=== PATIENT | male | born 1970 | race Caucasian/White ===

== ENCOUNTER 2020-03-26 10:06 | Outpatient (CLI) | payer OTHER, SELFPAY ==
[2020-03-27 14:53] LABS: SARS-CoV-2 RNA PCR Positive
== END 2020-03-26 10:07 | disposition home or self-care (01) ==
LOC: CHSLAB 10:11
PROVIDERS: PCP Internal Medicine; Visit Provider Internal Medicine
DX: U07.1 COVID-19 (principal); R50.9 Fever, unspecified; R05 Cough
CPT/HCPCS: 87635; C9803; U0003

== ENCOUNTER 2022-04-25 16:46 | Emergency (ER) | payer OTHER, SELFPAY ==
[2022-04-25 18:26] VITALS: BP 133/88; PULSE 85; RESP 17; TEMP 37.8; O2SAT 96
[2022-04-25 18:33] VITALS: O2SAT 95
--- NOTE | 2022-04-25 18:56 | ED.GENADULT ---
HPI - General Adult General Chief complaint: Upper Respiratory Infection Stated complaint: fever,chills,cough History of Present Illness HPI narrative: patient is an otherwise healthy year old male who has had flu-like symptoms for the last 48 hours, consisting of a fever as high as 104? today, treated with Tylenol and ibuprofen at home. He does feel generalized weakness and fatigue. Does have sinus congestion, sinus drainage, rhinorrhea, chills, diaphoresis, but no significant sore throat or dyspnea. The cough is nonproductive and dry. No abdominal pain. No nausea or vomiting. No urinary symptoms. He is a nonsmoker. He is vaccinated against COVID-19 2 of 2 doses +1 booster. He did contract COVID 19 in March 2020. Related Data Home Medications Medication Instructions Recorded Confirmed No Home Medications 04/25/22 04/25/22 Allergies Allergy/AdvReac Type Severity Reaction Status Date / Time No Known Allergies Allergy Verified 04/25/22 18:37 Review of Systems Review of Systems: All systems reviewed & are unremarkable except as noted in HPI and below Constitutional: Constitutional: Reports no additional constitutional complaints, Denies anorexia, Reports body ache(s), Reports chills, Denies excessive sweating, Reports fatigue, Reports fever(s), Denies frequent falls, Denies headache(s), Reports malaise and Denies poor appetite Eyes: Eyes: Reports no additional eye complaints, Denies blurry vision, Denies change in vision, Denies irritation, Denies itchy eyes and Denies photophobia ENT: Reports system reviewed and no additional complaints, except as documented, Reports Normal hearing present, Denies change in voice, Denies dysphagia, Denies vertigo, Denies dizziness, Denies ear discharge, Denies headache(s), Denies hearing loss, Denies hoarseness, Reports nasal congestion, Reports nasal discharge, Denies neck pain, Denies sinus pressure, Denies sore throat and Denies throat swelling Cardiovascular: Cardiovascular: Reports no additional cardiovascular complaints, Denies chest pain, Denies syncope, Denies rapid heart rate, Denies irregular heart rhythm, Denies leg edema, Denies dyspnea and Denies slow heart rate Respiratory: Respiratory: Reports no additional respiratory complaints, Reports cough, Denies dyspnea, Denies stridor and Denies wheezing Gastrointestinal: Gastrointestinal: Reports no additional gastrointestinal complaints, Denies abdominal pain, Denies melena, Denies hematochezia, Denies dysphagia, Denies diarrhea, Denies nausea and Denies vomiting Genitourinary: Genitourinary: Denies hematuria, Denies oliguria, Denies dysuria, Denies flank pain, Denies urinary frequency and Denies urinary urgency Musculoskeletal: Musculoskeletal: Reports no additional musculoskeletal complaints, Denies abnormal gait, Denies back pain, Denies myalgias, Denies arthralgias, Denies joint swelling, Denies limited range of motion, Denies muscle cramps, Denies muscle weakness, Denies neck pain and Denies numbness Integumentary/Breasts: Skin/Breast: Reports system reviewed and no additional complaints, except as docu, Denies breast pain, Denies change in pigmentation, Denies pruritus, Denies erythema and Denies wounds Neurologic: Reports system reviewed and no additional complaints, except as documented, Reports Normal hearing present, Denies Abnormal speech present, Denies abnormal gait, Denies confusion, Denies vertigo, Denies dizziness, Denies syncope, Denies frequent falls, Denies headache(s), Denies focal weakness, Denies numbness and Denies paresthesias Psychiatric: Psychiatric: Reports no additional psychiatric complaints and Denies confusion Endocrine: Endocrine: Reports no additional endocrine complaints, Denies cold intolerance, Denies excessive sweating, Denies fatigue and Denies heat intolerance Hematologic/Lymphatic: Hematologic/Lymphatic: Reports no additional hematologic/lymphatic complaints, Denies easy bleeding and Denies eas
[2022-04-25 19:42] LABS: Influenza A QL RT-PCR Positive (Negative); Influenza B QL RT-PCR Negative (Negative); SARS-CoV-2 RNA PCR Negative (Negative)
--- NOTE | 2022-04-25 19:44 | PC.NURSE ---
pt is sitting on stretcher in exam room nad noted. cough and sinus drainage noted. pt reports scratchy throat, denies pain, declines strep swab. pt is awaiting lab results at this time. will continue to monitor.
[2022-04-25 19:51] LABS: RSV RNA, RT-PCR Negative (Negative)
[2022-04-25] MEDS: OSELTAMIVIR PHOSPHATE 75 MG CAPSULE PO (20:03)
[2022-04-25 20:21] VITALS: BP 124/76; PULSE 80; RESP 14; TEMP 37.8; O2SAT 98
== END 2022-04-25 20:15 | disposition home or self-care (01) ==
PROVIDERS: Emergency Provider Emergency Medicine; PCP Internal Medicine
DX: J10.1 Influenza due to other identified influenza virus with other respiratory manifestations (principal); Z20.822 Contact with and (suspected) exposure to COVID-19
CPT/HCPCS: 87637; 99283; A9270

== ENCOUNTER 2023-04-19 07:56 | Emergency (ER) | payer OTHER, SELFPAY ==
--- NOTE | ~2023-04-19 | XR_ITS ---
EXAMINATION: XR chest 1V portable DATE: 04/19/2023 08:15 INDICATION: Midsternal chest pain with cough TECHNIQUE: frontal view of the chest was obtained. COMPARISON: Chest radiograph dated 05/20/2016 FINDINGS: The lungs remain clear with no focal airspace opacities, pulmonary edema, pleural effusion or pneumot horax. The cardiomediastinal silhouette is normal. Visualized bones and soft tissues are unremarkable . IMPRESSION: 1. No acute cardiopulmonary disease. Reviewed, dictated and finalized at location A. [facility]
[2023-04-19 07:56] VITALS: BP 131/100; PULSE 100; RESP 20; TEMP 37.3; O2SAT 97
--- NOTE | 2023-04-19 08:08 | ED.GENADULT ---
HPI - General Adult General Chief complaint: Upper Respiratory Infection Stated complaint: cough & sore throat Time Seen by Provider: 04/19/23 08:02 History of Present Illness HPI narrative: Carlos is a 52M that was previously healthy that presented to the ED with sinus pain, pressure, sore throat, fevers and chills for a few days that are not getting better. There is no CP, dyspnea, N/V, or diarrhea. Related Data Allergies Allergy/AdvReac Type Severity Reaction Status Date / Time No Known Allergies Allergy Verified 04/19/23 08:02 Review of Systems Review of Systems: All systems reviewed & are unremarkable except as noted in HPI and below Exam Const: General: cooperative, healthy appearing, comfortable, no acute distress, well developed, alert, awake and Physically active Orientation/consciousness: oriented to person, oriented to place and oriented to time HENMT: Head: normal to inspection, normocephalic and atraumatic Ears: hearing grossly normal bilaterally and external ears normal Face/Nose/Sinus: Normal external nose present Eyes: General: appearance normal, both eyes and all related structures Periorbital: periorbital findings normal Sclera: sclerae normal Pupils: Equal, round and reactive pupils present Neck: Neck: normal visual inspection Chest: Chest palpation & inspection: normal inspection of the chest Resp: Effort & Inspection: normal respiratory effort, able to speak in complete sentences and no respiratory distress Auscultation: clear to auscultation bilaterally Cardio: Jugular venous distension: no JVD Rate: regular rate Rhythm: regular rhythm GI: Inspection: normal to inspection GI Palp: Yes Soft to palpation Auscultation: normal bowel sounds Skin: General skin exam: normal color and no rashes or lesions noted Neuro: General: oriented to person, oriented to place and oriented to time Cranial nerves: Yes Equal, round and reactive pupils present Extrem: General: normal to inspection Course Course Emergency Course: Ordered labs, viral testing, and CXR labs and CXR are unremarkable. + for COVID Vital Signs Vital signs: Vital Signs Temperature 99.1 F 04/19/23 07:56 Pulse Rate 100 04/19/23 07:56 Respiratory Rate 20 04/19/23 07:56 Blood Pressure 131/100 H 04/19/23 07:56 Pulse Oximetry 97 04/19/23 07:56 Oxygen Delivery Room Air 04/19/23 07:56 Temperature 99.1 F 04/19/23 07:56 Pulse Rate 100 04/19/23 07:56 Respiratory Rate 20 04/19/23 07:56 Blood Pressure 131/100 H 04/19/23 07:56 Pulse Oximetry 97 04/19/23 08:10 Oxygen Delivery Room Air 04/19/23 08:10 Medical Decision Making Vital Signs Vital Signs: Vital Signs Temperature 99.1 F 04/19/23 07:56 Pulse Rate 100 04/19/23 07:56 Respiratory Rate 20 04/19/23 07:56 Blood Pressure 131/100 H 04/19/23 07:56 Pulse Oximetry 97 04/19/23 07:56 Oxygen Delivery Room Air 04/19/23 07:56 Temperature 99.1 F 04/19/23 07:56 Pulse Rate 100 04/19/23 07:56 Respiratory Rate 20 04/19/23 07:56 Blood Pressure 131/100 H 04/19/23 07:56 Pulse Oximetry 97 04/19/23 08:10 Oxygen Delivery Room Air 04/19/23 08:10 Lab Data 04/19/23 08:26 04/19/23 08:26 Labs: Lab Results 04/19/23 Range/Units 08:26 WBC 6.5 (4.8-10.8) K/mm3 RBC 5.34 (4.70-6.10) M/mm3 Hgb 14.9 (14.0-18.0) g/dL Hct 45.7 (40.0-54.0) % MCV 85.6 (78.0-102.0) fL MCH 27.9 (27.0-31.0) pg MCHC 32.6 (32.0-36.0) g/dL RDW 12.5 (11.6-14.4) % Plt Count 261 (150-420) K/mm3 MPV 8.7 (8.7-11.0) fl Immature Gran % (Auto) 0.5 H (0.0-0.0) % Neut % (Auto) 61.9 (50.0-70.0) % Lymph % (Auto) 24.3 (18.0-42.0) % Leslie % (Auto) 8.3 (2.0-11.0) % Eos % (Auto) 4.7 (1.0-6.0) % Baso % (Auto) 0.3 (0.0-1.0) % Lymph # (Auto) 1.59 (1.10-4.50) K/mm3 Leslie # (Auto) 0.54 (0.10-0.90) K/mm3 Eos # (Auto) 0.31 (0.02-0.50) K/mm3 Baso # (Auto) 0.02 (
[2023-04-19 08:10] VITALS: O2SAT 97
[2023-04-19 08:33] LABS: Basophils Absolute Auto 0.02 K/mm3 (0.00-0.10); Basophils Percent Auto 0.3 % (0.0-1.0); Eosinophils Absolute Auto 0.31 K/mm3 (0.02-0.50); Eosinophils Percent Auto 4.7 % (1.0-6.0); Hematocrit 45.7 % (40.0-54.0); Hemoglobin 14.9 g/dL (14.0-18.0); Immature Granulocyte Absolute 0.03 K/mm3 (0.00-0.00); Immature Granulocyte Percent A 0.5 % (0.0-0.0); Lymphocytes Absolute Auto 1.59 K/mm3 (1.10-4.50); Lymphocytes Percent Auto 24.3 % (18.0-42.0); Mean Corpuscular HGB Conc 32.6 g/dL (32.0-36.0); Mean Corpuscular Hemoglobin 27.9 pg (27.0-31.0); Mean Corpuscular Volume 85.6 fL (78.0-102.0); Mean Platelet Volume 8.7 fl (8.7-11.0); Monocytes Absolute Auto 0.54 K/mm3 (0.10-0.90); Monocytes Percent Auto 8.3 % (2.0-11.0); Neutrophils Percent Auto 61.9 % (50.0-70.0); Platelet Count Result 261 K/mm3 (150-420); Red Blood Count 5.34 M/mm3 (4.70-6.10); Red Cell Distribution Width 12.5 % (11.6-14.4); White Blood Count 6.5 K/mm3 (4.8-10.8)
[2023-04-19 08:47] LABS: Alanine Aminotransferase 70 U/L (16-63); Albumin Level 3.6 g/dL (3.4-5.0); Alkaline Phosphatase 54 U/L (46-116); Anion Gap 5 mmol/L (8-16); Aspartate Amino Transferase 22 U/L (15-37); Bilirubin,Total 0.5 mg/dL (0.00-1.00); Blood Urea Nitrogen 13 mg/dL (7-18); Calcium 9.2 mg/dL (8.5-10.1); Carbon Dioxide 33 mmol/L (21-32); Chloride 104 mmol/L (98-108); Estimated CRCL calculation 84 ml/min; Estimated Glomerular Filt Rate > 60; Glucose 135 mg/dL (70-99); Osmolality Calculated 296 mOsm/kg (285-295); Potassium 3.8 mmol/L (3.5-5.1); Sodium 142 mmol/L (136-145); Total Protein 7.6 g/dL (6.4-8.2)
[2023-04-19 09:00] LABS: Strep Group A RT-PCR NOT DETECTED (Negative)
[2023-04-19 09:12] LABS: Influenza A QL RT-PCR Negative (Negative); Influenza B QL RT-PCR Negative (Negative); RSV RNA, RT-PCR Negative (Negative); SARS-CoV-2 RNA PCR Positive (Negative)
[2023-04-19 09:24] VITALS: BP 127/91; PULSE 88; RESP 18; TEMP 37.3; O2SAT 97
== END 2023-04-19 09:25 | disposition home or self-care (01) ==
LOC: CHSED 09:56
PROVIDERS: Emergency Provider Family Medicine; PCP Internal Medicine
DX: U07.1 COVID-19 (principal)
CPT/HCPCS: 36415; 71045; 80053; 85025; 87637; 87651; 99283